=== PATIENT | female | born 1985 | race Caucasian/White ===

== ENCOUNTER 2022-03-07 09:22 | Emergency (ER) | payer OTHER ==
[2022-03-07] MEDS ORDERED: NORCO 5-325 TA1 EACH PO (12:49)
== END 2022-03-07 13:08 | disposition home or self-care (01) ==
LOC: FER 09:22
DX: S22.41XA Multiple fractures of ribs, right side, initial encounter for closed fracture (principal); Z88.1 Allergy status to other antibiotic agents; Z28.311 Partially vaccinated for COVID-19; X58.XXXA Exposure to other specified factors, initial encounter
CPT/HCPCS: 71250; 93005